=== PATIENT | female | born 1940 | race Caucasian/White ===

== ENCOUNTER 2017-11-05 16:41 | Inpatient (IN) | payer OTHER, MEDICAID, MEDICARE ==
[2017-11-05 20:50] LABS: ADD MAN DIFF? NO
[2017-11-05 20:55] LABS: WHITE BLOOD COUNT 10.5 10^3/ul (4.8-10.8)
[2017-11-05 20:55] LABS: BASOPHIL # 0.1 10^3/ul (0.0-0.1); BASOPHILS % 0.5 % (0.0-2.0); EOSINOPHILS % 0.2 % (0.0-7.0); HEMATOCRIT 37.7 % (37.0-47.0); HEMOGLOBIN 12.4 g/dl (12.0-16.0); LYMPHOCYTES # 1.3 10^3/ul (0.8-2.9); LYMPHOCYTES % 12.4 % (15.0-51.0); MEAN CORPUSCULAR HEMOGLOBIN 30.5 pg (29.0-33.0); MEAN CORPUSCULAR HGB CONC 32.9 g/dl (32.0-37.0); MEAN CORPUSCULAR VOLUME 92.9 fl (82.0-101.0); MONOCYTE # 1.3 10^3/ul (0.3-0.9); NEUTROPHIL # 7.8 10^3/ul (1.6-7.5); NEUTROPHILS % 74.1 % (39.0-77.0); PLATELET COUNT 236 10^3/UL (140-415); RED BLOOD COUNT 4.06 10^6/ul (4.20-5.40); RED CELL DISTRIBUTION WIDTH 12.9 % (11.5-14.5)
[2017-11-05 21:09] LABS: HEMOGLOBIN A1C 5.4 % (0-5.9)
[2017-11-05 21:12] LABS: ANION GAP 12 (8-16); BLOOD UREA NITROGEN 18 mg/dl (7-20); CALCIUM 9.2 mg/dl (8.4-10.2); CARBON DIOXIDE 30 mmol/L (21-31); CHLORIDE 97 mmol/L (97-110); CHOL/HDL RATIO 2.7 RATIO; CHOLESTEROL 108 mg/dl (100-200); CREATININE 0.82 mg/dl (0.44-1.00); GLUCOSE 127 mg/dl (70-220); HDL CHOLESTEROL 40 mg/dl (33-92); LDL CHOLESTEROL,CALCULATED 48 mg/dl; POTASSIUM 3.6 mmol/L (3.5-5.1); SODIUM 135 mmol/L (135-144); TRIGLYCERIDES 98 mg/dl (0-149)
[2017-11-05 21:14] LABS: INR 1.08; PROTIME 14.1 Sec (11.9-14.9); PT RATIO 1.1
[2017-11-05 21:15] LABS: PARTIAL THROMBOPLASTIN TIME 40.2 Sec (25.0-35.0)
[2017-11-05 21:24] LABS: TROPONIN-I < 0.012 ng/ml (0.00-0.12)
[2017-11-05 22:50] LABS: URINE BLOOD (Dip) POC 1+ (NEGATIVE); URINE GLUCOSE (Dip) POC Negative (NEGATIVE); URINE KETONES (Dip) POC Trace (NEGATIVE); URINE LEUKOCYTE EST (Dip) POC 1+ (NEGATIVE); URINE NITRITE (Dip) POC Positive (NEGATIVE); URINE TOTAL PROTEIN POC 2+ (NEGATIVE)
[2017-11-05 23:28] LABS: ADD UMIC YES; UR ASCORBIC ACID NEGATIVE (NEGATIVE); UR BACTERIA FEW /HPF (NONE SEEN); UR BILIRUBIN (Dip) NEGATIVE (NEGATIVE); UR BLOOD (Dip) 1+ mg/dL (NEGATIVE); UR CLARITY SLIGHTLY CLOUDY (CLEAR); UR COLOR YELLOW (YELLOW); UR GLUCOSE (Dip) NEGATIVE (NEGATIVE); UR KETONES (Dip) NEGATIVE (NEGATIVE); UR LEUKOCYTE ESTERASE (Dip) 2+ Leu/ul (NEGATIVE); UR MUCUS FEW /HPF (NONE SEEN); UR NITRITE (Dip) POSITIVE (NEGATIVE); UR RBC 3 /HPF (0-5); UR SPECIFIC GRAVITY (Dip) 1.016 (1.003-1.030); UR TOTAL PROTEIN (Dip) 2+ mg/dl (NEGATIVE); UR UROBILINOGEN (Dip) 1+ mg/dL (NEGATIVE); UR WBC 107 /HPF (0-5)
[2017-11-05] MEDS ORDERED: ONDANSETRON 4 MG INJ IV (23:30)
[2017-11-05] MEDS ORDERED: ACETAMINOPHEN 325 MG TAB PO (23:30)
[2017-11-05 23:47] LABS: AMPHETAMINE/METHAMPHETAMINE NEGATIVE (NEGATIVE); BARBITURATES NEGATIVE (NEGATIVE); BENZODIAZEPINES POSITIVE (NEGATIVE); CANNABINOIDS NEGATIVE (NEGATIVE); COCAINE NEGATIVE (NEGATIVE); OPIATES NEGATIVE (NEGATIVE)
[2017-11-06] MEDS: CEFTRIAXONE 1 GM/50 ML (PMX) 50 ML IVPB ×3 (00:34→20:12)
[2017-11-06] MEDS ORDERED: ACETAMINOPHEN 325 MG TAB PO (07:30)
[2017-11-06] MEDS ORDERED: morphine 2 MG INJ IV (07:30)
[2017-11-06] MEDS ORDERED: ONDANSETRON 4 MG INJ IV (07:30)
[2017-11-06] MEDS ORDERED: NACL 0.9% 3 ML SYG IV (07:30)
[2017-11-06 12:28] LABS: ADD MAN DIFF? NO
[2017-11-06 12:30] LABS: BASOPHILS % 0.4 % (0.0-2.0); EOSINOPHILS % 0.1 % (0.0-7.0); HEMATOCRIT 36.5 % (37.0-47.0); HEMOGLOBIN 12.2 g/dl (12.0-16.0); LYMPHOCYTES # 1.3 10^3/ul (0.8-2.9); MEAN CORPUSCULAR HGB CONC 33.4 g/dl (32.0-37.0); MEAN CORPUSCULAR VOLUME 92.6 fl (82.0-101.0); MEAN PLATELET VOLUME 9.9 fl (7.4-10.4); MONOCYTE # 1.1 10^3/ul (0.3-0.9); MONOCYTES % 10.2 % (0.0-11.0); NEUTROPHIL # 8.2 10^3/ul (1.6-7.5); NEUTROPHILS % 76.5 % (39.0-77.0); PLATELET COUNT 239 10^3/UL (140-415); RED BLOOD COUNT 3.94 10^6/ul (4.20-5.40); RED CELL DISTRIBUTION WIDTH 12.9 % (11.5-14.5)
[2017-11-06 12:30] LABS: WHITE BLOOD COUNT 10.7 10^3/ul (4.8-10.8)
[2017-11-06 12:47] LABS: ALANINE AMINOTRANSFERASE 28 IU/L (13-69); ALBUMIN 3.1 g/dl (3.3-4.9); ALBUMIN/GLOBULIN RATIO 1.03; ALKALINE PHOSPHATASE 88 IU/L (42-121); ANION GAP 13 (8-16); ASPARTATE AMINO TRANSFERASE 39 IU/L (15-46); BILIRUBIN,INDIRECT 0.1 mg/dl (0-1.1); BILIRUBIN,TOTAL 0.1 mg/dl (0.2-1.3); BLOOD UREA NITROGEN 17 mg/dl (7-20); CALCIUM 8.7 mg/dl (8.4-10.2); CARBON DIOXIDE 28 mmol/L (21-31); CHLORIDE 101 mmol/L (97-110); CREATININE 0.71 mg/dl (0.44-1.00); GLUCOSE 101 mg/dl (70-220); POTASSIUM 3.8 mmol/L (3.5-5.1); SODIUM 138 mmol/L (135-144); TOTAL PROTEIN 6.1 g/dl (6.1-8.1)
[2017-11-06] MEDS ORDERED: ALBUTEROL HFA 8 GM INHALER INH (14:00)
[2017-11-06] MEDS ORDERED: ZOLPIDEM 5 MG TAB PO (14:00)
[2017-11-06] MEDS: MEMANTINE 10 MG TAB PO (20:12)
[2017-11-06] MEDS: ATORVASTATIN 20 MG TAB PO (20:12)
[2017-11-06] MEDS: SALMETEROL/FLUTICASONE 500/50 INHA INH (20:12)
[2017-11-07 06:07] LABS: ADD MAN DIFF? NO
[2017-11-07] MEDS: LEVOTHYROXINE 50 MCG TAB PO (06:16)
[2017-11-07 06:24] LABS: WHITE BLOOD COUNT 8.4 10^3/ul (4.8-10.8)
[2017-11-07 06:25] LABS: BASOPHIL # 0.1 10^3/ul (0.0-0.1); BASOPHILS % 0.6 % (0.0-2.0); EOSINOPHILS # 0.1 10^3/ul (0.0-0.5); EOSINOPHILS % 0.7 % (0.0-7.0); HEMATOCRIT 36.3 % (37.0-47.0); HEMOGLOBIN 12.1 g/dl (12.0-16.0); LYMPHOCYTES # 1.3 10^3/ul (0.8-2.9); LYMPHOCYTES % 15.3 % (15.0-51.0); MEAN CORPUSCULAR HEMOGLOBIN 30.7 pg (29.0-33.0); MEAN CORPUSCULAR HGB CONC 33.3 g/dl (32.0-37.0); MEAN CORPUSCULAR VOLUME 92.1 fl (82.0-101.0); MEAN PLATELET VOLUME 10.4 fl (7.4-10.4); MONOCYTE # 0.9 10^3/ul (0.3-0.9); MONOCYTES % 10.6 % (0.0-11.0); NEUTROPHILS % 71.6 % (39.0-77.0); PLATELET COUNT 276 10^3/UL (140-415); RED BLOOD COUNT 3.94 10^6/ul (4.20-5.40); RED CELL DISTRIBUTION WIDTH 12.9 % (11.5-14.5)
[2017-11-07 06:32] LABS: ANION GAP 15 (8-16); BLOOD UREA NITROGEN 15 mg/dl (7-20); CALCIUM 9.1 mg/dl (8.4-10.2); CARBON DIOXIDE 26 mmol/L (21-31); CHLORIDE 104 mmol/L (97-110); CREATININE 0.71 mg/dl (0.44-1.00); GLUCOSE 84 mg/dl (70-220); MAGNESIUM 1.8 mg/dl (1.7-2.5); PHOSPHORUS 3.4 mg/dl (2.5-4.9); POTASSIUM 3.5 mmol/L (3.5-5.1); SODIUM 141 mmol/L (135-144)
[2017-11-07] MEDS: MEMANTINE 10 MG TAB PO ×2 (09:51→21:32)
[2017-11-07] MEDS: CEFTRIAXONE 1 GM/50 ML (PMX) 50 ML IVPB ×2 (09:51→21:32)
[2017-11-07] MEDS: ESCITALOPRAM 10 MG TAB PO (09:51)
[2017-11-07] MEDS: DULOXETINE 30 MG CAP DR PO (09:51)
[2017-11-07] MEDS: VALSARTAN 160 MG TAB PO (09:51)
[2017-11-07] MEDS: DONEPEZIL 10 MG TAB PO (09:51)
[2017-11-07] MEDS: SALMETEROL/FLUTICASONE 500/50 INHA INH ×2 (10:35→21:32)
[2017-11-07] MEDS: ATORVASTATIN 20 MG TAB PO (21:32)
[2017-11-08] MEDS: LEVOTHYROXINE 50 MCG TAB PO (06:33)
[2017-11-08] MEDS: DULOXETINE 30 MG CAP DR PO (08:53)
[2017-11-08] MEDS: ESCITALOPRAM 10 MG TAB PO (08:54)
[2017-11-08] MEDS: VALSARTAN 160 MG TAB PO (08:56)
[2017-11-08] MEDS: DONEPEZIL 10 MG TAB PO (08:57)
[2017-11-08] MEDS: MEMANTINE 10 MG TAB PO (08:57)
[2017-11-08] MEDS: CEFTRIAXONE 1 GM/50 ML (PMX) 50 ML IVPB (08:58)
[2017-11-08] MEDS: SALMETEROL/FLUTICASONE 500/50 INHA INH (08:59)
== END 2017-11-08 15:55 | disposition home health service (06) | DRG 689 ==
LOC: MS2 23:24 → E/R 16:41 → MS2 11-06 23:52
DX: N39.0 Urinary tract infection, site not specified (principal); G93.41 Metabolic encephalopathy; E44.0 Moderate protein-calorie malnutrition; Z68.1 Body mass index [BMI] 19.9 or less, adult; I10 Essential (primary) hypertension; F32.9 Major depressive disorder, single episode, unspecified; B96.20 Unspecified Escherichia coli [E. coli] as the cause of diseases classified elsewhere; E03.9 Hypothyroidism, unspecified; F17.210 Nicotine dependence, cigarettes, uncomplicated
CPT/HCPCS: 36415; 70450; 70551; 71045; 80048; 80053; 80061; 80307; 81001; 81003; 82962; 83036; 83735; 84100; 84484; 85025; 85610; 85730; 87086; 93005; 96374; 99285-25

== ENCOUNTER 2018-12-18 21:34 | Emergency (ER) | payer OTHER ==
[2018-12-18] MEDS: DIPHTH/TET/ACEL PERTUSS (ADULT) 0.5 ML VIAL IM* (22:46)
[2018-12-19] MEDS: ACETAMINOPHEN 325 MG TAB PO (00:01)
== END 2018-12-19 00:09 | disposition home or self-care (01) ==
LOC: E/R 12-19 00:09
DX: S62.636A Displaced fracture of distal phalanx of right little finger, initial encounter for closed fracture (principal); S01.01XA Laceration without foreign body of scalp, initial encounter; S62.634A Displaced fracture of distal phalanx of right ring finger, initial encounter for closed fracture; I10 Essential (primary) hypertension; E03.9 Hypothyroidism, unspecified; W01.198A Fall on same level from slipping, tripping and stumbling with subsequent striking against other object, initial encounter; Z23 Encounter for immunization
CPT/HCPCS: 12001; 70450; 73130-RT; 90471; 90715; 99284-25